=== PATIENT | male | born 1945 | race Caucasian/White ===

== ENCOUNTER 2023-01-18 20:02 | Emergency (ER) | payer OTHER ==
[~2023-01-18] VITALS: Ht 177.8 cm; Wt 98.4 kg
[2023-01-18 20:14] VITALS: BP_SYST 136
[2023-01-18 21:35] LABS: HEMATOCRIT 41.3 % (36-54); HEMOGLOBIN 13.7 g/dL (14.0-18.0); MEAN CORPUSCULAR HEMOGLOBIN 32 pg (27-31); MEAN CORPUSCULAR HGB CONC 33 % (32-36); MEAN CORPUSCULAR VOLUME 95 fL (79.0-98.0); PLATELET COUNT (AUTO) 203 K/uL (130-430); RED BLOOD CELL COUNT(AUTO) 4.34 MIL/uL (4.2-6.2); RED CELL DISTRIBUTION WIDTH 13.7 % (9.0-15.0); WHITE BLOOD COUNT (AUTO) 17.9 K/uL (4.8-10.8)
[2023-01-18 22:05] LABS: ANION GAP 11 (5-15); CALCIUM 8.4 mg/dL (8.4-11.0); CHLORIDE 104 mmol/L (98-107); CREATININE 1.57 mg/dL (0.55-1.30); GLUCOSE 159 mg/dL (70-99); UREA NITROGEN, BLOOD 14 mg/dL (8-21)
[2023-01-18 22:09] LABS: ALANINE AMINOTRANSFERASE 33 U/L (12-78); ALBUMIN 3.4 g/dL (3.4-4.8); ASPARTATE AMINOTRANSFERASE 15 U/L (10-37); LIPASE 230 U/L (73-393); TOTAL BILIRUBIN 0.8 mg/dL (0.0-1.0)
[2023-01-18 22:13] LABS: BAND % (MANUAL) 1 % (0-6); BASOPHILS % (MANUAL) 0 % (0-2); EOSINOPHILS % (MANUAL) 0 % (0-7); LYMPHOCYTES % (MANUAL) 8 % (20-46); MONOCYTES % (MANUAL) 13 % (0-11)
[2023-01-18 23:07] LABS: BILIRUBIN,URINE NEGATIVE (NEGATIVE); CLARITY/URINE CLEAR (CLEAR); COLOR,URINE YELLOW (YELLOW); GLUCOSE,URINE NEGATIVE (NEGATIVE); KETONES,URINE 1+ (NEGATIVE); LEUKOCYTE ESTERASE ,URINE NEGATIVE (NEGATIVE); NITRITE, URINE NEGATIVE (NEGATIVE); PH,URINE 5.5 (5.0-8.0); PROTEIN URINE 1+ (NEGATIVE); UROBILINOGEN,URINE 0.2 (0.2-1.0)
[2023-01-18 23:13] LABS: BLOOD, URINE TRACE (NEGATIVE)
[2023-01-18] MEDS ORDERED: NACL 0.9% 1,000 ML IV ONE (23:45)
[2023-01-19] MEDS ORDERED: PIPERACILLIN/TAZO 3.375 GM in NS 50 ML IV ONE (01:00)
[2023-01-19] MEDS ORDERED: PIPERACILLIN/TAZOBACTAM 3.375 GM/VIAL (ZOSYN) IV ONE (01:12)
[2023-01-19] MEDS ORDERED: ONDA-8 TL (02:07)
[2023-01-19] MEDS ORDERED: AMOX-423 PO (02:07)
[2023-01-19] MEDS ORDERED: ACET-2634 PO (02:07)
[2023-01-19 02:44] VITALS: BP_SYST 132
== END 2023-01-19 02:50 | disposition home or self-care (01) ==
LOC: SED 20:02
DX: K57.90 Diverticulosis of intestine, part unspecified, without perforation or abscess without bleeding (principal); R10.84 Generalized abdominal pain; R59.0 Localized enlarged lymph nodes; D72.829 Elevated white blood cell count, unspecified; Z79.899 Other long term (current) drug therapy
CPT/HCPCS: 99284; 74176; 96361; 85027; 80053; 83690; 85007; 87040; 87086; 36415; 76376; 83605; 81003; 96365; J7030; J2543

== ENCOUNTER 2024-05-26 10:05 | Inpatient (IN) | payer OTHER ==
[~2024-05-26] VITALS: Ht 177.8 cm; Wt 98.0 kg
[~2024-05-26 10:05] MED LIST: ACET-2634 PO; AMOX-423 PO; ONDA-8 TL
[2024-05-26 10:16] VITALS: BP_SYST 113; PULSE 57; RESP 22; TEMP 98.3; O2SAT 95
[2024-05-26] MEDS: PIPERACILLIN/TAZO 3.375 GM in D5W 50 ML IV ONE (10:47)
[2024-05-26 11:16] LABS: BASOPHILS # (AUTO) 0.1 K/uL (0.0-0.2); BASOPHILS % (AUTO) 0.7 % (0.0-2.0); EOSINOPHILS # (AUTO) 0.1 K/uL (0.0-0.4); EOSINOPHILS % (AUTO) 1.9 % (0.0-4.0); HEMATOCRIT 40.9 % (36-54); HEMOGLOBIN 13.4 g/dL (14.0-18.0); LYMPHOCYTES # (AUTO) 1.4 K/uL (1.0-5.5); MEAN CORPUSCULAR HEMOGLOBIN 32 pg (27-31); MEAN CORPUSCULAR HGB CONC 33 % (32-36); MEAN CORPUSCULAR VOLUME 98 fL (79.0-98.0); MONOCYTES # (AUTO) 0.9 K/uL (0.0-1.0); MONOCYTES % (AUTO) 11.1 % (1.7-9.3); NEUTROPHILS # (AUTO) 5.5 K/uL (1.8-7.7); NEUTROPHILS % (AUTO) 68.3 % (40.0-70.0); PLATELET COUNT (AUTO) 197 K/uL (130-430); RED BLOOD CELL COUNT(AUTO) 4.19 MIL/uL (4.2-6.2); RED CELL DISTRIBUTION WIDTH 14.2 % (9.0-15.0)
[2024-05-26 11:32] LABS: INR 1.1 (0.80-1.20)
[2024-05-26 11:34] LABS: ALANINE AMINOTRANSFERASE 50 U/L (12-78); ALBUMIN 3.2 g/dL (3.4-4.8); ANION GAP 9 (5-15); ASPARTATE AMINOTRANSFERASE 33 U/L (10-37); BILIRUBIN,DIRECT 0.1 mg/dL (0.0-0.3); CALCIUM 8.4 mg/dL (8.4-11.0); CARBON DIOXIDE 24 mmol/L (23-29); CHLORIDE 110 mmol/L (98-107); CREATININE 1.38 mg/dL (0.55-1.30); GLUCOSE 113 mg/dL (74-106); POTASSIUM 4.6 mmol/L (3.5-5.1); SODIUM SERUM 143 mmol/L (136-145); TOTAL BILIRUBIN 0.3 mg/dL (0.0-1.0); UREA NITROGEN, BLOOD 17 mg/dL (8-21)
[2024-05-26] MEDS ORDERED: METF-379 PO (12:05)
[2024-05-26] MEDS ORDERED: FERR236T3 PO (12:05)
[2024-05-26] MEDS ORDERED: MECL-225 PO (12:05)
[2024-05-26] MEDS ORDERED: VITD2000 PO (12:05)
[2024-05-26] MEDS ORDERED: TAMS-11 PO (12:05)
[2024-05-26] MEDS ORDERED: LEVO100T9 PO (12:05)
[2024-05-26] MEDS ORDERED: MULT-950 (12:05)
[2024-05-26] MEDS ORDERED: LISI10TA29 PO (12:05)
[2024-05-26 14:06] VITALS: BP_SYST 115; PULSE 51; RESP 19; TEMP 97.6; O2SAT 96
[2024-05-26 14:09] VITALS: BP_SYST 116; PULSE 51; RESP 18; TEMP 97.6
[2024-05-26 16:24] VITALS: BP_SYST 127; PULSE 57; RESP 16; TEMP 97.7; O2SAT 98
[2024-05-26] MEDS ORDERED: OMEG-158 PO (18:56)
[2024-05-26] MEDS ORDERED: SODI650T PO (18:56)
[2024-05-26] MEDS ORDERED: LEVO2.5S8 PO (18:56)
[2024-05-26 20:00] VITALS: O2SAT 96
[2024-05-26 20:20] VITALS: BP_SYST 121; PULSE 60; RESP 18; TEMP 97.3
[2024-05-26] MEDS ORDERED: ACETAMINOPHEN 325 MG TABLET PO PRN (20:45)
[2024-05-26] MEDS ORDERED: HYDROcodone/ACETAMIN 5-325 MG TAB (NORCO/ VICODIN) PO PRN (20:45)
[2024-05-26] MEDS: PIPERACILLIN/TAZO 3.375 GM in D5W 50 ML IV SCH (23:14)
[2024-05-27 00:15] VITALS: BP_SYST 129; PULSE 58; RESP 17; TEMP 97.7; O2SAT 98
[2024-05-27] MEDS ORDERED: HYDROcodone/ACETAMIN 10-325 MG TAB PO PRN (09:30)
[2024-05-27] MEDS ORDERED: LEVOCETIRIZINE DIHYDROCHLORIDE PO PRN (09:30)
[2024-05-27] MEDS ORDERED: ACETAMINOPHEN 325 MG TABLET PO PRN ×2 (09:30→10:45)
[2024-05-27] MEDS ORDERED: ONDANSETRON HCL 4 MG/2 ML VIAL IVP PRN (09:30)
[2024-05-27] MEDS ORDERED: NALOXONE HCL 0.4 MG/ML AMP (NARCAN) IVP PRN ×2 (09:30)
[2024-05-27] MEDS ORDERED: LORazepam 2 MG/ML VIAL IVP PRN (09:30)
[2024-05-27] MEDS ORDERED: INSULIN REGULAR, HUMAN 100 UNITS/ML, 3 ML VIAL (humuLIN R) SUBCUT PRN (09:30)
[2024-05-27] MEDS ORDERED: HYDROcodone/ACETAMIN 5-325 MG TAB (NORCO/ VICODIN) PO PRN (09:30)
[2024-05-27] MEDS: HYDROcodone/ACETAMIN 10-325 MG TAB PO PRN (10:06)
[2024-05-27 10:47] VITALS: BP_SYST 106; PULSE 56; RESP 16; TEMP 97.3; O2SAT 96
[2024-05-27] MEDS: LEVOTHYROXINE SODIUM 0.15 MG TABLET PO ONE (10:50)
[2024-05-27] MEDS: CHOLECALCIFEROL (VITAMIN D3) 2,000 UNIT TABLET PO ONE (10:51)
[2024-05-27] MEDS: TAMSULOSIN HCL 0.4 MG CAP PO ONE (10:51)
[2024-05-27] MEDS: LISINOPRIL 10 MG TABLET (PRINIVIL) PO ONE (10:52)
[2024-05-27 11:26] VITALS: BP_SYST 116; PULSE 55; RESP 16; TEMP 97.8; O2SAT 94
[2024-05-27 11:27] LABS: BASOPHILS # (AUTO) 0.1 K/uL (0.0-0.2); BASOPHILS % (AUTO) 0.8 % (0.0-2.0); EOSINOPHILS # (AUTO) 0.2 K/uL (0.0-0.4); EOSINOPHILS % (AUTO) 2.2 % (0.0-4.0); HEMATOCRIT 41.4 % (36-54); HEMOGLOBIN 13.6 g/dL (14.0-18.0); LYMPHOCYTES # (AUTO) 1.3 K/uL (1.0-5.5); LYMPHOCYTES % (AUTO) 17.2 % (20.5-51.5); MEAN CORPUSCULAR HEMOGLOBIN 32 pg (27-31); MEAN CORPUSCULAR HGB CONC 33 % (32-36); MEAN CORPUSCULAR VOLUME 97 fL (79.0-98.0); MONOCYTES # (AUTO) 0.8 K/uL (0.0-1.0); MONOCYTES % (AUTO) 10.7 % (1.7-9.3); NEUTROPHILS # (AUTO) 5.2 K/uL (1.8-7.7); NEUTROPHILS % (AUTO) 69.1 % (40.0-70.0); PLATELET COUNT (AUTO) 215 K/uL (130-430); RED BLOOD CELL COUNT(AUTO) 4.26 MIL/uL (4.2-6.2); RED CELL DISTRIBUTION WIDTH 13.7 % (9.0-15.0); WHITE BLOOD COUNT (AUTO) 7.5 K/uL (4.8-10.8)
[2024-05-27] MEDS: MULTIVITS,CA,MINERALS/IRON/FA 1 TABLET PO ONE (11:37)
[2024-05-27 11:57] LABS: ANION GAP 11 (5-15); CALCIUM 8.8 mg/dL (8.4-11.0); CARBON DIOXIDE 24 mmol/L (23-29); CHLORIDE 108 mmol/L (98-107); GLUCOSE 136 mg/dL (74-106); POTASSIUM 4.7 mmol/L (3.5-5.1); SODIUM SERUM 143 mmol/L (136-145); UREA NITROGEN, BLOOD 21 mg/dL (8-21)
[2024-05-27] MEDS: NORMAL SALINE 5 ML DISP.SYRIN IVF SCH (14:00)
[2024-05-27 16:06] VITALS: BP_SYST 119; PULSE 54; RESP 16; TEMP 97.9; O2SAT 95
[2024-05-27] MEDS: MECLIZINE HCL 25 MG TABLET (ANITVERT) PO SCH (18:04)
[2024-05-27 20:00] VITALS: BP_SYST 115; PULSE 62; RESP 18; TEMP 97.8; O2SAT 96
[2024-05-27] MEDS: SODIUM BICARBONATE 650 MG TABLET PO SCH (21:02)
[2024-05-27] MEDS: DOXYCYCLINE HYCLATE 100 MG TABLET PO SCH (21:04)
[2024-05-27] MEDS: ceFAZolin SODIUM 1 GM in D5W 50 ML IV SCH (21:05)
[2024-05-28 00:13] VITALS: BP_SYST 116; PULSE 56; RESP 18; TEMP 97.5; O2SAT 95
[2024-05-28] MEDS: LEVOTHYROXINE SODIUM 0.15 MG TABLET PO SCH (06:13)
[2024-05-28 06:47] LABS: BASOPHILS % (AUTO) 0.4 % (0.0-2.0); EOSINOPHILS # (AUTO) 0.2 K/uL (0.0-0.4); EOSINOPHILS % (AUTO) 2.3 % (0.0-4.0); HEMATOCRIT 41.8 % (36-54); HEMOGLOBIN 13.8 g/dL (14.0-18.0); LYMPHOCYTES # (AUTO) 1.6 K/uL (1.0-5.5); LYMPHOCYTES % (AUTO) 19.6 % (20.5-51.5); MEAN CORPUSCULAR HEMOGLOBIN 32 pg (27-31); MEAN CORPUSCULAR HGB CONC 33 % (32-36); MEAN CORPUSCULAR VOLUME 97 fL (79.0-98.0); MONOCYTES # (AUTO) 0.9 K/uL (0.0-1.0); MONOCYTES % (AUTO) 11.4 % (1.7-9.3); NEUTROPHILS # (AUTO) 5.4 K/uL (1.8-7.7); NEUTROPHILS % (AUTO) 66.3 % (40.0-70.0); PLATELET COUNT (AUTO) 206 K/uL (130-430); RED BLOOD CELL COUNT(AUTO) 4.33 MIL/uL (4.2-6.2); RED CELL DISTRIBUTION WIDTH 13.6 % (9.0-15.0); WHITE BLOOD COUNT (AUTO) 8.2 K/uL (4.8-10.8)
[2024-05-28 07:03] LABS: ALANINE AMINOTRANSFERASE 44 U/L (12-78); ANION GAP 9 (5-15); ASPARTATE AMINOTRANSFERASE 23 U/L (10-37); CALCIUM 8.7 mg/dL (8.4-11.0); CARBON DIOXIDE 24 mmol/L (23-29); CHLORIDE 108 mmol/L (98-107); CREATININE 1.51 mg/dL (0.55-1.30); GLUCOSE 120 mg/dL (74-106); POTASSIUM 4.5 mmol/L (3.5-5.1); SODIUM SERUM 141 mmol/L (136-145); TOTAL BILIRUBIN 0.4 mg/dL (0.0-1.0); TOTAL PROTEIN, SERUM 5.7 g/dL (6.4-8.3); UREA NITROGEN, BLOOD 26 mg/dL (8-21)
[2024-05-28 08:10] VITALS: BP_SYST 117; PULSE 53; RESP 18; TEMP 97.7; O2SAT 98
[2024-05-28] MEDS: LISINOPRIL 10 MG TABLET (PRINIVIL) PO SCH (09:00)
[2024-05-28] MEDS: NACL 0.9% 1,000 ML IV SCH (10:06)
[2024-05-28] MEDS: OMEGA-3/DHA/EPA/FISH OIL 1 GM CAPSULE PO SCH (10:07)
[2024-05-28] MEDS: MULTIVITS,CA,MINERALS/IRON/FA 1 TABLET PO SCH (10:11)
[2024-05-28] MEDS: TAMSULOSIN HCL 0.4 MG CAP PO SCH (10:12)
[2024-05-28] MEDS: CHOLECALCIFEROL (VITAMIN D3) 2,000 UNIT TABLET PO SCH (10:12)
[2024-05-28 11:08] VITALS: BP_SYST 117; PULSE 58; RESP 15; TEMP 97.9; O2SAT 97
[2024-05-28] MEDS: FERROUS GLUCONATE 324 MG TABLET PO SCH (11:16)
[2024-05-28 16:12] VITALS: BP_SYST 113; PULSE 60; RESP 16; TEMP 98; O2SAT 97
[2024-05-28 19:57] VITALS: O2SAT 94
[2024-05-28 20:01] VITALS: BP_SYST 125; PULSE 69; RESP 19; TEMP 96.3; O2SAT 94
[2024-05-29 00:14] VITALS: BP_SYST 119; PULSE 65; RESP 20; TEMP 98.1; O2SAT 95
[2024-05-29] MEDS ORDERED: DOXY100C5 PO (07:29)
[2024-05-29] MEDS ORDERED: METF-1069 PO (07:29)
[2024-05-29] MEDS ORDERED: AMOX-423 PO (07:29)
[2024-05-29 07:45] VITALS: O2SAT 94
[2024-05-29 08:00] VITALS: BP_SYST 114; PULSE 55; RESP 17; TEMP 97.4; O2SAT 95
[2024-05-29 08:47] LABS: ANION GAP 7 (5-15); CALCIUM 8.7 mg/dL (8.4-11.0); CARBON DIOXIDE 27 mmol/L (23-29); CHLORIDE 107 mmol/L (98-107); CREATININE 1.46 mg/dL (0.55-1.30); GLUCOSE 120 mg/dL (74-106); PHOSPHORUS 3.5 mg/dL (2.7-4.5); POTASSIUM 4.4 mmol/L (3.5-5.1); SODIUM SERUM 141 mmol/L (136-145); UREA NITROGEN, BLOOD 29 mg/dL (8-21)
[2024-05-29 08:56] LABS: EOSINOPHILS # (AUTO) 0.2 K/uL (0.0-0.4); MEAN CORPUSCULAR VOLUME 97 fL (79.0-98.0); RED CELL DISTRIBUTION WIDTH 13.6 % (9.0-15.0); WHITE BLOOD COUNT (AUTO) 7.9 K/uL (4.8-10.8)
[2024-05-29 09:00] LABS: BASOPHILS % (AUTO) 0.5 % (0.0-2.0); EOSINOPHILS % (AUTO) 2.3 % (0.0-4.0); HEMATOCRIT 41.1 % (36-54); HEMOGLOBIN 13.6 g/dL (14.0-18.0); LYMPHOCYTES # (AUTO) 1.6 K/uL (1.0-5.5); LYMPHOCYTES % (AUTO) 20.3 % (20.5-51.5); MEAN CORPUSCULAR HEMOGLOBIN 32 pg (27-31); MEAN CORPUSCULAR HGB CONC 33 % (32-36); MONOCYTES # (AUTO) 0.9 K/uL (0.0-1.0); MONOCYTES % (AUTO) 10.9 % (1.7-9.3); NEUTROPHILS # (AUTO) 5.2 K/uL (1.8-7.7); PLATELET COUNT (AUTO) 202 K/uL (130-430); RED BLOOD CELL COUNT(AUTO) 4.26 MIL/uL (4.2-6.2)
[2024-05-29 09:26] LABS: ERYTHROCYTE SEDIMENTATION RATE 2 MM/HR (0-15)
[2024-05-29 11:07] VITALS: BP_SYST 110; PULSE 64; RESP 15; TEMP 96.9; O2SAT 97
[2024-05-29 15:11] VITALS: BP_SYST 111; PULSE 87; RESP 16; TEMP 97.3; O2SAT 95
[2024-05-29 20:00] VITALS: BP_SYST 105; PULSE 96; RESP 18; TEMP 98.6; O2SAT 96
[2024-05-30] VITALS: BP_SYST 111; PULSE 70; RESP 18; TEMP 98.8; O2SAT 97
[2024-05-30 06:03] LABS: BASOPHILS # (AUTO) 0.1 K/uL (0.0-0.2); BASOPHILS % (AUTO) 0.7 % (0.0-2.0); EOSINOPHILS # (AUTO) 0.3 K/uL (0.0-0.4); EOSINOPHILS % (AUTO) 3.2 % (0.0-4.0); HEMATOCRIT 38.5 % (36-54); HEMOGLOBIN 12.7 g/dL (14.0-18.0); LYMPHOCYTES # (AUTO) 2.1 K/uL (1.0-5.5); LYMPHOCYTES % (AUTO) 26.1 % (20.5-51.5); MEAN CORPUSCULAR HEMOGLOBIN 32 pg (27-31); MEAN CORPUSCULAR HGB CONC 33 % (32-36); MEAN CORPUSCULAR VOLUME 97 fL (79.0-98.0); MONOCYTES % (AUTO) 12.6 % (1.7-9.3); NEUTROPHILS # (AUTO) 4.6 K/uL (1.8-7.7); NEUTROPHILS % (AUTO) 57.4 % (40.0-70.0); PLATELET COUNT (AUTO) 192 K/uL (130-430); RED BLOOD CELL COUNT(AUTO) 3.96 MIL/uL (4.2-6.2); RED CELL DISTRIBUTION WIDTH 13.5 % (9.0-15.0); WHITE BLOOD COUNT (AUTO) 8.1 K/uL (4.8-10.8)
[2024-05-30 07:01] LABS: ANION GAP 10 (5-15); CALCIUM 8.4 mg/dL (8.4-11.0); CARBON DIOXIDE 23 mmol/L (23-29); CHLORIDE 110 mmol/L (98-107); CREATININE 1.45 mg/dL (0.55-1.30); GLUCOSE 110 mg/dL (74-106); PHOSPHORUS 3.6 mg/dL (2.7-4.5); POTASSIUM 4.6 mmol/L (3.5-5.1); SODIUM SERUM 143 mmol/L (136-145); UREA NITROGEN, BLOOD 24 mg/dL (8-21)
[2024-05-30 07:38] LABS: ERYTHROCYTE SEDIMENTATION RATE 3 MM/HR (0-15)
[2024-05-30 08:00] VITALS: BP_SYST 133; PULSE 56; RESP 16; TEMP 97.4; O2SAT 96
[2024-05-30 12:36] VITALS: BP_SYST 114; PULSE 68; RESP 16; TEMP 97.3; O2SAT 96
[2024-05-30 14:32] VITALS: BP_SYST 115; PULSE 68; RESP 16; TEMP 97.3; O2SAT 96
== END 2024-05-30 14:50 | disposition home or self-care (01) | DRG 603 ==
LOC: SED 10:05 → SMU 12:06
PROVIDERS: ADMIT Preventive Medicine Preventive Medicine/Occupational Environmental Medicine; ATTEND Preventive Medicine Preventive Medicine/Occupational Environmental Medicine
DX: L03.115 Cellulitis of right lower limb (principal); N17.9 Acute kidney failure, unspecified; E44.0 Moderate protein-calorie malnutrition; D64.9 Anemia, unspecified; E11.65 Type 2 diabetes mellitus with hyperglycemia; E11.21 Type 2 diabetes mellitus with diabetic nephropathy; E66.9 Obesity, unspecified; I12.9 Hypertensive chronic kidney disease with stage 1 through stage 4 chronic kidney disease, or unspecified chronic kidney disease; E03.9 Hypothyroidism, unspecified; E88.09 Other disorders of plasma-protein metabolism, not elsewhere classified; N40.0 Benign prostatic hyperplasia without lower urinary tract symptoms; N18.31 Chronic kidney disease, stage 3a; Z79.899 Other long term (current) drug therapy; Z88.8 Allergy status to other drugs, medicaments and biological substances; Z68.31 Body mass index [BMI] 31.0-31.9, adult
CPT/HCPCS: 36415; 76770; 80048; 80053; 80076; 82948; 83605; 83735; 84100; 84484; 85025; 85610; 85651; 85730; 87040; 87070; 87081; 93971; 96365; 99285; J0690; J2060; J2543; J7060; J8597